=== PATIENT | male | born 1990 | race Caucasian/White ===

== ENCOUNTER 2024-05-20 17:55 | Emergency (ER) | payer SELFPAY ==
[2024-05-20 18:05] VITALS: BP 148/91; PULSE 79; TEMP 36.7; O2SAT 99; BMI 27.4
--- NOTE | 2024-05-20 18:16 | CT_ITS ---
The [address] [address] Patient Name: CLIFTON COONEY MRN: [id number] date: 1990 Sex: M Assigned Patient Location: ER Current Patient Location: ER Accession/Order Number: [id number] Exam Date: 05/20/2024 18:28 Report Date: 05/20/2024 18:58 At the request of: LAKSHMI VINES Procedure: CT head/brain wo con EXAM: CT head/brain wo con HISTORY: Blurry vision COMPARISON: None. TECHNIQUE: Axial CT scans through the head were obtained without IV contrast administration. Dose reduction techniques were achieved by using: automated exposure control and/or adjustment of mA and /or kV according to patient size and/or use of iterative reconstruction technique. FINDINGS: There is no acute intracranial hemorrhage or abnormal extra-axial fluid collection. No mass effect or midline shift is seen. There is no evidence of large acute territorial infarction. There is no hydrocephalus. To the limit of CT, the posterior fossa appears unremarkable. The calvaria and extra cranial soft tissues are unremarkable. The visualized orbits show no abnormality. The visualized paranasal sinuses show no air-fluid level. Mastoid air cells are clear. CT/CT head/brain wo con IMPRESSION: No acute intracranial process. Electronically authenticated by: NORAH LEWIS Date: 05/20/2024 18:58
--- NOTE | 2024-05-20 18:17 | ED.GENADUL1 ---
HPI HPI - General Adult General Chief complaint: Skin/Abscess/Foreign Body Stated complaint: VISUAL DISTURBANCE/ GENERAL WEAKNESS Time Seen by Provider: 05/20/24 18:08 Source: patient Mode of arrival: walk-in Limitations: no limitations History of Present Illness HPI narrative: Patient is a 34-year-old male who presents to the emergency department to be evaluated for a variety of complaints. He states he does not have a primary care doctor and is in between insurances so he uses urgent cares and emergency room's to provide him with care. He states for the last several days he has been applying spray to his right foot and he believes he has athlete's foot of the fourth and fifth toes. He states they are very itchy and red and swollen. He further complains of small red bumps to the right groin area that been present for an unknown period of time. No fevers, drainage. He further complains of intermittent blurred vision for the last several days and would like to have his eyes checked. He states he has some pain in the eyes. 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 Related Data Home Medications ?Medication ?Instructions ?Recorded ?Confirmed No Known Home Medications 05/20/24 05/20/24 Previous Rx's ?Medication ?Instructions ?Recorded cephalexin 500 mg capsule 500 mg PO Q8H 7 days #21 caps 05/20/24 clotrimazole 1 % topical cream 1 applic topical BID 2 weeks #30 05/20/24 (Lotrimin AF (clotrimazole)) grams Allergies Allergy/AdvReac Type Severity Reaction Status Date / Time No Known Drug Allergies Allergy Verified 05/20/24 18:04 Opioid HPI Opioid Management Most Recent Opioid Data: No Data to Display Review of Systems ROS Constitutional Denies: fever or chills Eyes Reports: change in vision, blurry vision and eye discomfort Ears, nose, mouth, and throat Denies: throat pain Respiratory Denies: shortness of breath or cough Gastrointestinal Denies: nausea or vomiting Musculoskeletal Denies: back pain Integumentary/Breast Denies: rash Neurological Denies: numbness in extremities or weakness in extremities Hematologic/Lymphatic Denies: easy bruising or easy bleeding Exam Narrative Exam Narrative: Gen.: Awake, alert, in no distress Head: Normocephalic, atraumatic ENT: Moist mucous membranes, bilateral TMs clear, no periorbital swelling or redness, no conjunctival injection. Normal extraocular muscle motion Respiratory: No respiratory distress Extremities: Moves extremities equally, right fourth and fifth toes with mild erythema, swelling in the webspace between the toes. No open wounds or red streaking. Psych: Normal mood and affect Neuro: No focal neuro deficit Skin: Warm, dry, intact; minimal red raised bumps to the right groin consistent with folliculitis. No pustules noted. No red streaking or abscess. No fluctuance. Constitutional Vital Signs, click to edit/add: Last Vital Signs Temp 98.1 F 05/20/24 18:05 Pulse 57 L 05/20/24 19:10 Resp 16 05/20/24 19:10 BP 122/81 05/20/24 19:10 Pulse Ox 98 05/20/24 19:10 O2 Del Method Room Air 05/20/24 19:10 Course Vital Signs Vital signs: Vital Signs Temperature 98.1 F 05/20/24 18:05 Pulse Rate 79 05/20/24 18:05 Respiratory Rate 16 05/20/24 18:05 Blood Pressure 148/91 H 05/20/24 18:05 Pulse Oximetry 99 05/20/24 18:05 Oxygen Delivery Method Room Air 05/20/24 18:05 Temperature 98.1 F 05/20/24 18:05 Pulse Rate 57 L 05/20/24 19:10 Respiratory Rate 16 05/20/24 19:10 Blood Pressure 122/81 05/20/24 19:10 Pulse Oximetry 98 05/20/24 19:10 Oxygen Delivery Method Room Air 05/20/24 19:10 Medical Decision Making [facility] Narrative Medical decision making narrative: CT scan of the brain is unremarkable, patient was able to drive himself to this emergency department, no double or loss of vision. He has bilateral eyes with intermittent blurred vision for several days, it was strongly recommended that he follow-up with an eye doctor as the emergency department is not the appropriate place for this care. He has evidence of mild folliculitis of the right groin and possible athlete's foot to the right foot. He will be placed on an antibiotic, given Decadron in the ER and Lamisil for home. He was referred to an eye doctor. He was given primary care referral as well. Return to the ER if symptoms change or worsen. SUPERVISED APC VISIT, PHYSICIAN ATTESTATION: Based on the medical record the care appears appropriate. ? Medical Records Medical records reviewed: Yes I reviewed the patient's medical records Lab Data Lab results reviewed: Yes I reviewed the patient's lab results Labs: Lab Results 05/20/24 Range/Units 18:17 POC Glucose 126 H (74-106) mg/dL Imaging Data CT scan - head: Attestation: I have reviewed the pertinent imaging results. Radiologist's impression: ITS Impressions Head CT 05/20/24 18:16 IMPRESSION: No acute intracranial process. Electronically authenticated by: NORAH LEWIS Date: 05/20/2024 18:58 Discharge Plan Discharge Chief Complaint: Skin/Abscess/Foreign Body Clinical Impression: Blurred vision, Folliculitis, Tinea pedis Patient Disposition: Home, Self-Care Time of Disposition Decision: 19:07 Condition: Good Prescriptions / Home Meds: New cephalexin 500 mg capsule 500 mg PO Q8H 7 Days Qty: 21 0RF clotrimazole [Lotrimin AF (clotrimazole)] 1 % cream 1 applic topical BID 14 Days Qty: 30 0RF No Action No Known Home Medications Print Language: Thai Instructions: Antifungals (On the skin) (Anti-Fungal Powder, Antifungal,..., Folliculitis (ED), Blurred Vision (ED) Referrals: Naresh Schreiber MD [Physician] - 1 week ERASMO STEPHENSON [Physician] - As soon as possible
[2024-05-20 18:19] LABS: Glucometer 126 mg/dL (74-106)
[2024-05-20 19:10] VITALS: BP 122/81; PULSE 57; O2SAT 98
[2024-05-20] MEDS: CEPHALEXIN 500 MG CAPSULE PO (19:35)
[2024-05-20] MEDS: DEXAMETHASONE SOD PHOS 10 MG/ML VIAL PO (19:35)
== END 2024-05-20 19:44 | disposition home or self-care (01) ==
PROVIDERS: Emergency Provider Emergency Medicine
DX: H53.8 Other visual disturbances (principal); L73.9 Follicular disorder, unspecified; B35.3 Tinea pedis
CPT/HCPCS: 36415; 70450; 99284; J1100